=== PATIENT | female | born 1965 | race Caucasian/White ===

== ENCOUNTER → 2020-07-27 | Outpatient (CLI) | payer BC, OTHER ==
[~2020-07-27] MED LIST: ALBUTEROL2.5 MG/3 M INH; MOBIC15 MG PO
== END ==
LOC: KOH-I 14:41
DX: M25.521 Pain in right elbow (principal)
CPT/HCPCS: 73080

== ENCOUNTER → 2020-08-26 | Outpatient (CLI) | payer BC, OTHER | LOC: KOH-I 11:23 | DX: M25.561 Pain in right knee (principal) | CPT/HCPCS: 73562 ==

== ENCOUNTER → 2021-03-13 | Outpatient (CLI) | payer BC | LOC: KOH-I 08:38 | DX: M25.562 Pain in left knee (principal) | CPT/HCPCS: 73562 ==

== ENCOUNTER → 2021-05-25 | Outpatient (CLI) | payer BC | LOC: RT 16:07 | DX: R00.2 Palpitations (principal) ==

== ENCOUNTER → 2021-07-18 | Outpatient (CLI) | payer BC | LOC: RAD 10:23 | DX: R07.1 Chest pain on breathing (principal); M54.6 Pain in thoracic spine; R07.81 Pleurodynia; M47.814 Spondylosis without myelopathy or radiculopathy, thoracic region | CPT/HCPCS: 71046; 71101; 72072 ==

== ENCOUNTER → 2021-08-07 | Outpatient (CLI) | payer BC | LOC: KOH-I 09:13 | DX: K59.00 Constipation, unspecified (principal); R10.9 Unspecified abdominal pain; R59.1 Generalized enlarged lymph nodes | CPT/HCPCS: 74018 ==

== ENCOUNTER → 2021-09-08 | Outpatient (CLI) | payer BC ==
[2021-09-08 12:26] LABS: HEMOGLOBIN 13.7 gm/dl (12.3-15.3); RED BLOOD COUNT 4.57 M/UL (4.00-5.10); WHITE BLOOD COUNT 7.5 K/UL (4.5-11.0)
== END ==
LOC: LAB 11:58
PROVIDERS: Nurse Practitioner Family
DX: R31.9 Hematuria, unspecified (principal); R10.9 Unspecified abdominal pain
CPT/HCPCS: 36415; 80048; 85025

== ENCOUNTER → 2021-09-08 | Outpatient (CLI) | payer BC | LOC: KOH-I 10:16 | DX: R10.11 Right upper quadrant pain (principal); R31.9 Hematuria, unspecified; N20.0 Calculus of kidney | CPT/HCPCS: 74176 ==

== ENCOUNTER → 2021-09-15 | Outpatient (CLI) | payer BC | LOC: EMI 09:27 | DX: M54.50 Low back pain, unspecified (principal); M51.36 Other intervertebral disc degeneration, lumbar region | CPT/HCPCS: 72148 ==